=== PATIENT | male | born 1975 | race Caucasian/White ===

== ENCOUNTER 2021-03-05 08:27 | Emergency (ER) | payer OTHER ==
[~2021-03-05] VITALS: Ht 180.3 cm; Wt 81.7 kg
[2021-03-05 09:16] LABS: ABSOLUTE LYMPHOCYTES 0.7 thou/uL (0.8-5.3); ABSOLUTE MONOCYTES 0.2 thou/uL (0.0-1.2); ABSOLUTE NEUTROPHILS 2.8 thou/uL (1.6-8.1); BASOPHILS 0.6 %; HEMATOCRIT 41.3 % (42.0-52.0); HEMOGLOBIN 14.7 gm/dL (14.0-18.0); LYMPHOCYTES 17.8 %; MCH 30.3 pg (26.0-34.0); MCHC 35.6 g/dL (28.0-37.0); MCV 85.3 fL (80.0-100.0); MONOCYTES 5.1 %; MPV 8.6 fl. (7.2-11.1); NUCLEATED RBCS 0 /100WBC; PLATELET COUNT* 139 thou/uL (150-400); POLYS 76.5 %; RBC 4.84 mil/uL (4.50-6.00); RDW-CV 12.9 % (10.5-14.5); WBC 3.7 thou/uL (4.0-11.0)
[2021-03-05 09:26] LABS: CALCIUM 8.5 mg/dL (8.5-10.1); CREATININE 1.1 mg/dL (0.6-1.3); POTASSIUM 4.5 mmol/L (3.5-5.1)
[2021-03-05 09:37] LABS: ALBUMIN 3.8 g/dL (3.4-5.0); TOTAL BILIRUBIN 0.5 mg/dL (<0.1-1.0); TOTAL PROTEIN 7.9 g/dL (6.4-8.2)
[2021-03-05] MEDS ORDERED: DEXAMETHASONE 44 M1 PO (09:54)
[2021-03-05] MEDS ORDERED: ZPAK PO (09:54)
[2021-03-05] MEDS ORDERED: ZOFRAN ODT4 MG DISSOLVE (09:54)
[2021-03-05 10:41] VITALS: BP 107/62
--- NOTE | 2021-03-06 11:48 | EKG ---
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 Bench: [facility] : 1975 Requested By: Davonte Rainey Order Number: [id number] MD: Geoff Bowser Measurements Intervals [place] Rate: 69 P: 66 AR: 181 QRS: 65 QRSD: 106 T: 1 QT: 373 QTc: 400 Interpretive Statements Sinus rhythm Probable left ventricular hypertrophy ST elev, probable normal early repol pattern No previous ECG available for comparison Electronically Signed On 03-06-2021 11:48:21 CDT by Geoff Bowser [email or web address] <ELECTRONICALLY SIGNED> By: Geoff Bowser MD, [facility] 03/06/21 1148 09 6 Geoff Bowser MD, [facility] /EPI
== END 2021-03-05 10:42 | disposition home or self-care (01) ==
LOC: M.ERS 08:27
PROVIDERS: Family Medicine
DX: U07.1 COVID-19 (principal)

== ENCOUNTER 2021-03-10 12:35 | Inpatient (IN) | payer OTHER ==
[~2021-03-10] VITALS: Ht 180.3 cm; Wt 76.1 kg
[~2021-03-10 12:35] MED LIST: DEXAMETHASONE 44 M1 PO; ZOFRAN ODT4 MG DISSOLVE; ZPAK PO
[2021-03-10 12:48] VITALS: BP 123/75
[2021-03-10 13:47] LABS: CALCIUM 8.7 mg/dL (8.5-10.1)
[2021-03-10 13:50] LABS: HEMATOCRIT 39.6 % (42.0-52.0); MCH 30.6 pg (26.0-34.0); MCHC 35.3 g/dL (28.0-37.0); MCV 86.7 fL (80.0-100.0); MPV 8.1 fl. (7.2-11.1); NUCLEATED RBCS 0 /100WBC; PLATELET COUNT* 273 thou/uL (150-400); RBC 4.57 mil/uL (4.50-6.00)
[2021-03-10 13:53] LABS: TOTAL BILIRUBIN 0.5 mg/dL (<0.1-1.0); TOTAL PROTEIN 7.5 g/dL (6.4-8.2)
[2021-03-10 14:35] LABS: ABSOLUTE LYMPHOCYTES 0.3 thou/uL (0.8-5.3); ABSOLUTE MONOCYTES 0.4 thou/uL (0.0-1.2); ABSOLUTE NEUTROPHILS 6.3 thou/uL (1.6-8.1); PLATELET ESTIMATE ADEQUATE
[2021-03-10 16:16] LABS: BE -3.7 mmol/L (-2 to +3); PCO2 27.1 mmHg (35.0-45.0); PO2 92.7 mmHg (75.0-100.0); pH 7.454 (7.340-7.450)
--- NOTE | 2021-03-10 16:47 | EKG ---
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: [place] : 1975 Requested By: Erika Lake Order Number: [id number] MD: Geoff Bowser Measurements Intervals [place] Rate: 75 P: 75 PA: 160 QRS: 68 QRSD: 89 T: 29 QT: 345 QTc: 386 Interpretive Statements Sinus rhythm Right atrial enlargement, possible Compared to ECG 03/05/2021 09:27:48 Atrial abnormality now present ST (T wave) deviation no longer present Electronically Signed On 03-10-2021 16:47:22 CDT by Geoff Bowser [email or web address] <ELECTRONICALLY SIGNED> By: Geoff Bowser MD, [facility] 03/10/21 1647 1309 1309 Geoff Bowser MD, FACC /EPI
[2021-03-10 18:00] VITALS: BP 131/66
--- NOTE | 2021-03-10 19:46 | NUR ---
I ASSUMED CARE OF THE PATIENT A TRANSFER FROM THE ED AT 1815. ADMISSION HISTORY IS COLLECTED AND PASSED ON TO NIGHT NURSE. IV PUMPS ARE SETUP, FALL ASSESSMENT IS COMPLETED AND ISOLATION IS MAINTAINED. REPORT PASSED ON TO JAY.
[2021-03-10 20:15] VITALS: BP 134/72
[2021-03-11] VITALS (7 sets, daily range): BP systolic 120–142; BP diastolic 61–80
--- NOTE | 2021-03-11 05:08 | NUR ---
PT ON 2.5LPM NASAL CANNULA PT SPO2 DECREASED TO THE 85% INCREASED 6LPM AND PLACED ON A HFNC. SPO2 INCREASED TO 90-91% CONT TO MONITOR AND ASSESS NEEDS.
--- NOTE | 2021-03-11 05:20 | NUR ---
PT SLEPT ON AND OFF THIS SHIFT. ASSESSMENT DOCUMENTED, MEDS GIVEN PER E-MAR. IV PATENT, FLUIDS INFUSING. NO REPORTS OF PAIN THIS SHIFT. PT O2 NEEDS INCREASED FROM 2.5L TO 6LNC. DR NOTIFIED, TELE ORDERS RECIEVED, PT PLACED ON CONTINOUS PULSE OX. PT STATES HE FEELS BETTER. PT ABLE TO MAKE NEEDS KNOWN. ISOLATION MAINTAINED. WILL CONTINUE WITH PLAN OF CARE.
[2021-03-11 05:44] LABS: ABSOLUTE LYMPHOCYTES 0.5 thou/uL (0.8-5.3); ABSOLUTE MONOCYTES 0.2 thou/uL (0.0-1.2); ABSOLUTE NEUTROPHILS 5.6 thou/uL (1.6-8.1); BASOPHILS 0.4 %; HEMATOCRIT 37.5 % (42.0-52.0); HEMOGLOBIN 13.4 gm/dL (14.0-18.0); LYMPHOCYTES 8.5 %; MCH 30.6 pg (26.0-34.0); MCHC 35.7 g/dL (28.0-37.0); MCV 85.9 fL (80.0-100.0); MONOCYTES 2.5 %; MPV 8.5 fl. (7.2-11.1); NUCLEATED RBCS 0 /100WBC; PLATELET COUNT* 300 thou/uL (150-400); POLYS 88.6 %; RBC 4.36 mil/uL (4.50-6.00); RDW-CV 13.2 % (10.5-14.5); WBC 6.3 thou/uL (4.0-11.0)
[2021-03-11 06:12] LABS: ALBUMIN 2.8 g/dL (3.4-5.0); CALCIUM 7.8 mg/dL (8.5-10.1); CREATININE 0.8 mg/dL (0.6-1.3); POTASSIUM 4.2 mmol/L (3.5-5.1); TOTAL BILIRUBIN 0.4 mg/dL (<0.1-1.0); TOTAL PROTEIN 7.2 g/dL (6.4-8.2)
--- NOTE | 2021-03-11 09:41 | NUR ---
ASSUMED CARE OF PT THIS AM AROUND 0715- DIE CUTTER APPRENTICE IN PLACE ORDERED, TRACING SR- UPON ASSESSMENT PT NOTED TO BEB RESTING IN BED, WATCHING TV- PT A&O X4, ANXIOUS- CONT OF B/B- UP AD-RODRICK IN ROOM, STEADY GAIT NOTED- VSS, O2 SAT 90% ON 6L VIA HF NC THIS AM- DYSPNEA NOTED- ABD SOFT/ROUND/NON-TENDER, BS X4 QUADS- LAST BM REPORTED X4 DAYS AGO- IV NOTED TO LEFT INTACT, IVF INFUSSING PRESCRIBED- IV ABT GIVEN THIS SHIFT PRESCRIBED- GOOD PO INTAKE NOTED THIS AM WITH BREAKFAST- PT DENIES ANY C/O PAIN- ISOLATION IN PLACE AND MAINTAINED INDICATED R/T COVID 19- CALL LIGHT AND PERSONAL BELONGINGS WITH IN REACH- PT MAKES NEEDS KNOWN- ALL NEEDS MET AT THIS TIME
--- NOTE | 2021-03-11 16:12 | NUR ---
CM ASSESSMENT: PT COVID POSITIVE AND CURRENTLY UNDER ENHANCED PRECAUTIONS. PT A&O, INDEPENDENT WITH ADL'S, ACTIVEM AND WORKS OUTSIDE THE HOME. PT USES 0 DME. PT HAS 0 HX OF HH OR SNF. PT RESIDES AT HOME WITH SPOUSE. PT CURRENTLY ON 6L O2 AND DID NOT HAVE HOME OXYGEN PRIOR TO ADMIT. CM D/C PLANNING NEEDS TBD AT THIS TIME. CM WILL REMAIN AVAILABLE TO ASSIST AND FOLLOW NEEDED.
--- NOTE | 2021-03-12 02:12 | NUR ---
ASSUMED CARE OF PATIENT AT 1900. PATIENT VERY DEPRESSED AND FRUSTED ABOUT BEING SICK AND WANTS TO GO HOME. EDUCATION GIVEN REGARDING COVID AND AND COURSE OF TREATMENT. RESTING WELL THROUGH THE NIGHT. PROGRESSING SLOWLY TOWARDS POC GOALS.
[2021-03-12 04:00] VITALS: BP 129/59
[2021-03-12 08:24] LABS: ABSOLUTE LYMPHOCYTES 0.9 thou/uL (0.8-5.3); ABSOLUTE MONOCYTES 0.5 thou/uL (0.0-1.2); ABSOLUTE NEUTROPHILS 4.4 thou/uL (1.6-8.1); BASOPHILS 0.1 %; HEMATOCRIT 38.1 % (42.0-52.0); HEMOGLOBIN 13.4 gm/dL (14.0-18.0); LYMPHOCYTES 15.2 %; MCH 30.4 pg (26.0-34.0); MCHC 35.2 g/dL (28.0-37.0); MCV 86.2 fL (80.0-100.0); MONOCYTES 9.2 %; MPV 8.2 fl. (7.2-11.1); NUCLEATED RBCS 0 /100WBC; PLATELET COUNT* 345 thou/uL (150-400); POLYS 75.5 %; RBC 4.42 mil/uL (4.50-6.00); RDW-CV 12.7 % (10.5-14.5); WBC 5.9 thou/uL (4.0-11.0)
[2021-03-12 08:30] VITALS: BP 115/68
[2021-03-12 08:47] LABS: ALBUMIN 3.1 g/dL (3.4-5.0); CALCIUM 8.9 mg/dL (8.5-10.1); CREATININE 0.8 mg/dL (0.6-1.3); MAGNESIUM 2.4 mg/dL (1.8-2.4); POTASSIUM 4.5 mmol/L (3.5-5.1); TOTAL BILIRUBIN 0.4 mg/dL (<0.1-1.0); TOTAL PROTEIN 7.6 g/dL (6.4-8.2)
[2021-03-12 09:01] LABS: PREALBUMIN 18.9 mg/dL (18.0-35.7)
[2021-03-12 12:00] VITALS: BP 116/69
[2021-03-12 15:30] VITALS: BP 118/70
--- NOTE | 2021-03-12 18:51 | NUR ---
PT. AOX4, VSS, O2 TITRATED TO 3.5L NC AT END OF SHIFT, TOLERATING WELL O2 SAT 94%, PT. USES INCENTIVE SPIROMETER REGULARLY, DENIES PAIN OR DISCOMFORT. PT. HAD SHOWER THIS AM, IN PLEASANT SPIRITS, ANXIOUS. CALL LIGHT AND PERSONAL BELONGINGS PLACED WITHIN REACH, ON COVID ISO PRECAUTIONS. PT. IN BED, IN STABLE CONDITION AT SHIFT CHANGE.
[2021-03-12 20:00] VITALS: BP 127/69
[2021-03-13] VITALS (7 sets, daily range): BP systolic 112–133; BP diastolic 62–78
--- NOTE | 2021-03-13 05:57 | NUR ---
ASSUMED CARE OF PT AFTER REPORT AT 1930. PT A&OX4. VSS. PHYSICAL ASSESSMENT COMPLETED AND CHARTED. PT ON O2 AT 3.5L NC. PT TRACING SR/SB ON TELE. PT UPADLIB TO RESTROOM. SPUTUM SPECIMEN SENT TO LAB. CALL LIGHT WITHIN REACH.
[2021-03-13 07:45] LABS: ALBUMIN 3.1 g/dL (3.4-5.0); CALCIUM 8.9 mg/dL (8.5-10.1); CREATININE 0.8 mg/dL (0.6-1.3); MAGNESIUM 2.2 mg/dL (1.8-2.4); POTASSIUM 4.5 mmol/L (3.5-5.1); TOTAL BILIRUBIN 0.4 mg/dL (<0.1-1.0); TOTAL PROTEIN 7.5 g/dL (6.4-8.2)
--- NOTE | 2021-03-13 20:06 | NUR ---
Pt. axo4, vss, o2 titrated to 1.5L from 3L at shart of shift, continues of remdisivir treatment-3/ does administered. pt. continues on IS hourly. RT rest & exercise done and results conveyed to Edna Mario DO. call light and personal belongings placed within reach. pt. sitting on side on of bed, in stable condition, at shift change.
[2021-03-14] VITALS (7 sets, daily range): BP systolic 105–145; BP diastolic 62–76
[2021-03-14 04:26] LABS: HEMATOCRIT 36.8 % (42.0-52.0); MCH 30.5 pg (26.0-34.0); MCHC 35.5 g/dL (28.0-37.0); MCV 85.9 fL (80.0-100.0); MPV 7.7 fl. (7.2-11.1); RBC 4.28 mil/uL (4.50-6.00); WBC 8.9 thou/uL (4.0-11.0)
--- NOTE | 2021-03-14 04:42 | NUR ---
ASSUMED PATIENT CARE AT 1900. ASSESSMENT COMPLETED CHARTED. CARDIAC MONITORING IN PLACE. HOURLY ROUNDING IN PLACE FOR PATIENT SAFETY. FALL PRECAUTIONS IN PLACE FOR PATIENT SAFETY. BED LOCKED AND IN LOWEST POSITION. CLWR.
[2021-03-14 04:46] LABS: ALBUMIN 2.9 g/dL (3.4-5.0); CALCIUM 8.8 mg/dL (8.5-10.1); CREATININE 0.9 mg/dL (0.6-1.3); POTASSIUM 4.2 mmol/L (3.5-5.1); TOTAL BILIRUBIN 0.4 mg/dL (<0.1-1.0); TOTAL PROTEIN 6.8 g/dL (6.4-8.2)
--- NOTE | 2021-03-14 09:31 | NUR ---
ASSUMED CARE OF PT THIS AM AROUND 0715- ELECTRICAL LABORATORY TECHNICIAN IN PLACE ORDERED, TRACING SR- UPON ASSESSMENT PT NOTED TO BE UP SITTING ON SIDE OF BED- PT A&O X4- CONT OF B/B- UP AD-RODRICK IN ROOM, STEADY GAIT NOTED- RUL CLEAR, ALL OTHER LUNG ANDRADE DIMINISHED-DYSPNEA NOTED- VSS, O2 SAT 95% ON 1.5L VIA NC- ABD SOFT/FLAT/NON-TENDER, BS X4 QUADS- LAST BM REPORED 03/13/21- IV TO RUE NOTED TO BE CLOTTED OFF, NEW 20 GUAGE IV PLACED TO RIGHT FA- GOOD PO INTAKE NOTED THIS AM WITH BREAKFAST, BS MONITORED ORDERED WITH INSULIN GIVEN PRESCRIBED-ISOLATION IN PLACE AND MAINTAINED R/T COVID- PT DENIES ANY C/O PAIN/DISCOMFORT AT THIS TIME- CALL LIGHT AND PERSONAL BELONGINGS WITH IN REACH- ALL NEEDS MET AT THIS TIME
--- NOTE | 2021-03-14 13:04 | NUR ---
PLAN OF CARE: PHYSICIAN INFORMS OF PLAN TO POSSIBLY D/C PT HOME TOMORROW WITH OXYGEN PENDING PULM RECOMMENDATIONS AND R.T. REST AND EXERCISE TESTING. CM TO ARRANGE HOME OXYGEN IF NEEDED WHEN R.T. TESTING IS COMPLETED PRIOR TO D/C. CM WILL REMAIN AVAILABLE
--- NOTE | 2021-03-14 20:33 | CON ---
[address] [address] CONSULTATION Name: KAYLENE COHN Room: [address] IN .R.#: [id number] Admission: 03/10/21 Attend Phys: Michel Romeo MD Discharge: Date of : 75 Report #: [id number] THIS REPORT FOR: cc: MANJU - Sanjana family physician/PCP MANJU - Sanjana family physician/PCP Dusty Tate MD ~ DOC #: [id number] Dusty Tate MD DATE OF CONSULTATION: 03/11/2021 Consult has been requested by Dr. Michel Romeo. INDICATION FOR CONSULTATION: Acute hypoxemic respiratory failure secondary to COVID-19. HISTORY OF PRESENT ILLNESS: A 45-year-old gentleman has essentially no significant past medical history, he is a lifetime nonsmoker, since he is active, he runs regularly. He now is admitted with COVID-19. He was initially diagnosed about a week ago. He has received 5 doses of dexamethasone as well as a Z-Kirk as an outpatient. His respiratory status, however, continued to worsen and therefore, he was admitted here initially. His O2 saturation was in the mid 80s on room air. He also had fever and chills and increasing shortness of breath, cough, not much sputum, no chest pain, no swelling of lower extremities, no calf pain, no heartburn. He was therefore placed on oxygen, initially was maintaining O2 saturation on 3 liters of oxygen. There has been some increase in his oxygen needs and he currently is saturating around 90% on 6 liters nasal cannula. He reports that his shortness of breath is about the same as yesterday. He had a low-grade fever overnight of 37.8. He is afebrile with a temperature of 36.4 now. I did review his records last night and I did give him an additional dose of Solu-Medrol in addition to dexamethasone that he is on. He is on doxycycline and I have given him ceftriaxone as well. We have obtained a sputum sample and nasal swab for MRSA, which are pending. His COVID-19 antigen is positive. REVIEW OF SYSTEMS: The patient's review of systems for 12 points is negative except as mentioned above. PAST MEDICAL HISTORY: There is no significant past medical history. SOCIAL HISTORY: Lifetime nonsmoker. Fairly active at baseline. No known history of heavy alcohol use or illegal drug use. CURRENT MEDICATIONS: List in [employer] reviewed. HOME MEDICATIONS: [place] [address] CONSULTATION Name: KAYLENE COHN Room: [address]#: [id number] Admission: 03/10/21 Attend Phys: Michel Romeo MD Discharge: Date of : 75 Report #: [id number] ALLERGIES: No known drug allergies. FAMILY HISTORY: There is no pertinent family history. PHYSICAL EXAMINATION: GENERAL: He in fact is hard of hearing, he say his ears are blocked. VITAL SIGNS: Body mass index 24. Pulse 68, blood pressure 132/68. He is saturating 90%. He is on 6 liters nasal cannula. Respiratory rate is elevated to 23, temperature 36.4 now. See discussion above. HEENT: Head is normocephalic and atraumatic. Pupils are equal and reactive. There is no throat erythema. There is no thrush in his throat. NECK: Does not show raised JVP, asymmetry, mass or lymph nodes. CHEST: Symmetrical expansion on inspection and palpation. On auscultation, there were occasional rales at bilateral bases. HEART: Regular. There is no murmur. ABDOMEN: Soft and nontender. LOWER EXTREMITIES: Show no edema, no calf tenderness. SKIN: Dry and intact. NEUROLOGIC: Moves all extremities bilaterally equally and spontaneously with no focal deficit identified. LABORATORY DATA: The patient's lab work in [employer] reviewed. A chest x-ray and CT is also reviewed, no pulmonary emboli, has extensive infiltrates consistent with COVID-19, there is some lobar consolidation in lower lobes, particularly left lower lobe as well. ASSESSMENT/PLAN: 1. Acute hypoxemic respiratory failure secondary to COVID-19. We will continue to titrate oxygen. Encourage ambulation if possible. Incentive spirometry. Prone positioning if possible. Out of bed to chair as possible. Sleep on sides if not prone to avoid supine sleep. 2. COVID-19, agree with dexamethasone, I give him additional Solu-Medrol last night. We will follow along. It is possible that we need to increase dose of dexamethasone and to give him additional dose. We will continue remdesivir. Follow LFTs. We will give him Actemra as well. I discussed with him risks and benefits of giving convalescent plasma, he agreed to the same as well. Therefore, I will go ahead and give him a unit, we will reassess tomorrow and consider a second unit. 3. Pulmonary infiltrates, primarily secondary to COVID-19, but there is some lobar consolidation as well. Therefore, I will order ceftriaxone yesterday. We will follow sputum culture and nasal swab for MRSA is pending. For now, we will continue doxycycline as well. If there are no other organisms cultured and MRSA swab is negative, then I will discontinue doxycycline and continue ceftriaxone [place] [address] CONSULTATION Name: KAYLENE COHN Room: [address] M.R.#: [id number] Admission: 03/10/21 Attend Phys: Michel Romeo MD Discharge: Date of : 75 Report #: [id number] alone as with a Z-Kirk, he already had atypical coverage. 4. Fluid and electrolytes. I would running him on the matrix drier tender side. Discontinue IV fluids. We will give him one dose of Lasix 40 mg with plasma today. We will assess a letter regarding additional dose. 5. DVT prophylaxis. I will increase his Lovenox to intermediate dose. 6. Gastrointestinal prophylaxis, on Protonix. 7. Clostridium difficile prophylaxis. We will give him Lactinex. Thanks for this consultation. Dusty Tate MD AP/CARMEN/RAE <ELECTRONICALLY SIGNED> By: Dusty Tate MD 03/14/212032 [id number] [id number] Tate MD /nt
--- NOTE | 2021-03-15 02:50 | NUR ---
ASSUMED CARE OF PT AT 1900. PT IS ALERT AND ORIENTED. VSS. PERRLA. NO COMPLAINTS OF PAIN. PT ON 1 LITER O2. PT IS IN [facility] [facility]. PT IS RESTING COMFORTABLY IN BED. RESPIRATIONS ARE EVEN AND NONLABORED. WILL CONTINUE TO MONITOR PT.
[2021-03-15 04:00] VITALS: BP 126/81
[2021-03-15 05:02] LABS: ABSOLUTE LYMPHOCYTES 1.1 thou/uL (0.8-5.3); ABSOLUTE MONOCYTES 0.6 thou/uL (0.0-1.2); ABSOLUTE NEUTROPHILS 7.1 thou/uL (1.6-8.1); BASOPHILS 0.1 %; EOSINOPHILS 0.3 %; HEMATOCRIT 37.1 % (42.0-52.0); HEMOGLOBIN 13.4 gm/dL (14.0-18.0); LYMPHOCYTES 12.9 %; MCH 30.7 pg (26.0-34.0); MCHC 36.1 g/dL (28.0-37.0); MCV 85.1 fL (80.0-100.0); MONOCYTES 6.7 %; MPV 7.6 fl. (7.2-11.1); NUCLEATED RBCS 0 /100WBC; PLATELET COUNT* 399 thou/uL (150-400); RBC 4.35 mil/uL (4.50-6.00); RDW-CV 13.1 % (10.5-14.5); WBC 8.9 thou/uL (4.0-11.0)
[2021-03-15 05:05] LABS: CALCIUM 8.9 mg/dL (8.5-10.1); CREATININE 0.9 mg/dL (0.6-1.3); POTASSIUM 4.6 mmol/L (3.5-5.1)
[2021-03-15 07:44] VITALS: BP 129/66
--- NOTE | 2021-03-15 08:46 | NUR ---
ASSUMED CARE OF PT THIS AM AROUND 0715- ENVIRONMENTAL SERVICE AIDE IN PLACE ORDERED, TRACING SR- UPON ASSESSMENT PT NOTED TO LAZARO RESTING IN BED, WATCHING TV- PT A&O X4- CONT OF B/B- UP AD-RODRICK IN ROOM- LCTA/DIMINISHED IN BASES- VSS, O2 SAT 93% ON RA- PT USING O2 AT 1.5L PRN THIS AM R/T SOA AND COMFORT- ABD SOFT/ROUND/NON-TENDER, BS X4 QUADS- LAST BM REPORTED 03/14/21- IV NOTED TO RIGHT AC INTACT AND SL- GOOD PO INTAKE NOTED THIS AM WITH BREAKFAST, BS MONIOTRED ORDERED WITH INSULIN PRESCRIBED- DENIES ANY C/O PAIN- CALL LIGHT AND PERSONAL BELONGINGS WITH IN REACH- ALL NEEDS MET AT THIS TIME
[2021-03-15] MEDS ORDERED: LEVOFLOXACIN500 MG PO (10:29)
[2021-03-15] MEDS ORDERED: PREDNISONE 10 M10 MG PO (10:32)
[2021-03-15 10:43] VITALS: BP 129/66
[2021-03-15 10:49] VITALS: BP 129/66
--- NOTE | 2021-03-15 11:47 | NUR ---
PHYSICIAN INFORMS OF PLAN FOR THE PT TO D/C TODAY PENDING PULM RECOMMENDATIONS. PT NOW ON ROOM AIR AND R.T. COMPLETED REST AND EXERCISE TESTING. PT DOES NOT NEED HOME OXYGEN AT D/C. NO OTHER CM D/C PLANNING NEEDS. CM WILL REMAIN AVAILABLR TO ASSIST AND FOLLOW NEEDED.
[2021-03-15 14:54] VITALS: BP 129/66
== END 2021-03-15 14:52 | disposition home or self-care (01) | DRG 177 ==
LOC: M.ERS 12:35 → M.2W 14:14 → M.TBA-ER 14:14 → M.2W 18:18
PROVIDERS: Internal Medicine; Internal Medicine Critical Care Medicine; Physician Assistant; ADMIT Internal Medicine; ATTEND Internal Medicine
PROC: XW033E5 Introduction of Remdesivir Anti-infective into Peripheral Vein, Percutaneous Approach, New Technology Group 5 (ICD-10-PCS; 2021-03-10)
PROC: XW13325 Transfusion of Convalescent Plasma (Nonautologous) into Peripheral Vein, Percutaneous Approach, New Technology Group 5 (ICD-10-PCS; principal; 2021-03-11)
PROC: 5A0935A Assistance with Respiratory Ventilation, Less than 24 Consecutive Hours, High Flow/Velocity Cannula (ICD-10-PCS; principal; 2021-03-11)
DX: U07.1 COVID-19 (principal); J96.01 Acute respiratory failure with hypoxia; J12.82 Pneumonia due to coronavirus disease 2019; E87.1 Hypo-osmolality and hyponatremia; J32.9 Chronic sinusitis, unspecified; Z79.899 Other long term (current) drug therapy